=== PATIENT | male | born 1935 | race African-American/Black ===

== ENCOUNTER 2019-04-22 06:59 | Inpatient (IN) | payer OTHER ==
[2019-04-22] VITALS (10 sets, daily range): BP systolic 68–133; BP diastolic 29–59
[~2019-04-22] VITALS: Ht 170.2 cm; Wt 86.3 kg
[2019-04-22] MEDS ORDERED: ALBUTEROL (0.083%) 2.5MG/3ML NEB HHN STA (07:20)
[2019-04-22] MEDS ORDERED: IPRATROPIUM BROMIDE (0.02%) 0.5MG/2.5ML NEB HHN STA (07:20)
[2019-04-22] MEDS ORDERED: METHYLPREDNISOLONE SOD SUCC 125 MG/2 ML VIAL IV STA (07:20)
[2019-04-22] MEDS ORDERED: SODIUM CHLORIDE 0.9% 500 ML IV ONE (07:22)
[2019-04-22 07:36] LABS: HEMATOCRIT. 39.3 % (42.0-52.0); LYMPHOCYTES % 24.6 % (20.0-50.0); MEAN CORPUSCULAR HEMOGLOBIN 32.8 pg (28.0-32.0); MEAN CORPUSCULAR VOLUME 99.3 fL (80.0-94.0); MEAN PLATELET VOLUME 9.9 fl (7.4-10.4); MONOCYTES % 12.2 % (2.0-8.0); NEUTROPHILS % 61.2 % (40.0-76.0); PLATELET 145 x1000/uL (130-400); RED BLOOD CELL COUNT 3.96 mill/uL (4.7-6.1); RED CELL DISTRIBUTION WIDTH 18.2 % (11.6-14.6)
[2019-04-22 07:43] LABS: CHLORIDE 104 mEq/L (98-107)
[2019-04-22 07:49] LABS: PHOSPHORUS 3.5 mg/dL (2.5-4.9)
[2019-04-22] MEDS ORDERED: LEVOFLOXACIN 500MG PREMIX 100 ML IV ONE (08:15)
[2019-04-22] MEDS ORDERED: VANCOMYCIN 1 G PREMIX 200 ML IV SCH ×2 (08:15→11:30)
[2019-04-22] MEDS ORDERED: PIPERACILLIN/TAZOBACTAM 3.375 G in DEXT 5% WATER 100 ML IV SCH (08:45)
[2019-04-22] MEDS ORDERED: IPRATROPIUM/ALBUTEROL 0.5-3(2.5)MG/3ML NEB HHN PRN (08:45)
[2019-04-22] MEDS ORDERED: LIDOCAINE HCL 1% 20ML VIAL (Pyxis) INJ ONE (08:59)
[2019-04-22] MEDS ORDERED: SODIUM CHLORIDE 10% FOR INH 15ML VIAL NEB INH SCH (11:00)
[2019-04-22] MEDS ORDERED: IPRATROPIUM/ALBUTEROL 0.5-3(2.5)MG/3ML NEB HHN SCH (12:00)
[2019-04-22] MEDS ORDERED: CLONIDINE 0.1MG TABLET PO PRN (12:30)
[2019-04-22] MEDS ORDERED: NA PHOS,M-B/NA PHOS,DI-BA ENEMA 118ML PR PRN (12:30)
[2019-04-22] MEDS ORDERED: ONDANSETRON HCL 4MG/2ML INJ IV PRN (12:30)
[2019-04-22] MEDS ORDERED: MAGNESIUM/ALUMINUM HYDROXIDE/SIMETHICONE 30ML UDC PO PRN (12:30)
[2019-04-22] MEDS ORDERED: HYDROCODONE/APAP 7.5/325MG 1 TAB TABLET PO PRN (12:30)
[2019-04-22] MEDS ORDERED: ACETAMINOPHEN 650MG/20.3ML UDC GT PRN (12:30)
[2019-04-22] MEDS ORDERED: GUAIFENESIN 200MG/10ML SUGAR FREE UDC PO PRN (12:30)
[2019-04-22] MEDS ORDERED: ENOXAPARIN 40MG/0.4ML SYR SUBCUT SCH (12:30)
[2019-04-22] MEDS ORDERED: ACETAMINOPHEN 650MG SUPP PR PRN (12:30)
[2019-04-22] MEDS ORDERED: ACETAMINOPHEN 325MG TABLET PO PRN (12:30)
[2019-04-22] MEDS ORDERED: DIPHENHYDRAMINE 50MG/ML VIAL IV PRN (12:30)
[2019-04-22] MEDS ORDERED: IPRATROPIUM/ALBUTEROL 0.5-3(2.5)MG/3ML NEB INH PRN (12:30)
[2019-04-22] MEDS ORDERED: DOCUSATE SODIUM 100MG CAPSULE PO PRN (12:30)
[2019-04-22] MEDS ORDERED: AZITHROMYCIN 500 MG in DEXT 5% WATER 250 ML IV SCH (14:00)
[2019-04-22] MEDS: SODIUM CHLORIDE 0.9% INJ 3ML FLUSH IVF SCH ×2 (14:00→21:05)
[2019-04-22] MEDS: PIPERACILLIN/TAZOBACTAM 2.25 G in DEXTROSE 5% WATER 50 ML IV SCH ×2 (15:40→21:04)
[2019-04-22] MEDS: ENOXAPARIN 30MG/0.3ML SYR SUBCUT SCH (15:55)
[2019-04-22] MEDS: MIDODRINE HCL 5MG TABLET PO SCH ×2 (15:56→21:04)
[2019-04-22] MEDS ORDERED: VANCOMYCIN 1 G PREMIX 200 ML IV NR (16:00)
[2019-04-22] MEDS: BUDESONIDE 0.5MG/2ML NEB HHN SCH (20:44)
[2019-04-22] MEDS: IPRATROPIUM/ALBUTEROL 0.5-3(2.5)MG/3ML NEB INH SCH (20:45)
[2019-04-22] MEDS: GUAIFENESIN 600MG ER TABLET PO SCH (21:04)
[2019-04-23] VITALS (16 sets, daily range): BP systolic 76–126; BP diastolic 33–76
[2019-04-23] MEDS ORDERED: ALBUMIN HUMAN 25GM/100ML (25%) IV NR (02:00)
[2019-04-23] MEDS: IPRATROPIUM/ALBUTEROL 0.5-3(2.5)MG/3ML NEB INH SCH ×4 (03:20→20:23)
[2019-04-23] MEDS: SODIUM CHLORIDE 0.9% INJ 3ML FLUSH IVF SCH ×2 (06:48→22:00)
[2019-04-23] MEDS: PIPERACILLIN/TAZOBACTAM 2.25 G in DEXTROSE 5% WATER 50 ML IV SCH ×3 (06:48→21:05)
[2019-04-23 08:14] LABS: BASOPHILS % 0.3 % (0.0-2.0); EOSINOPHILS % 0.1 % (0.0-5.0); HEMATOCRIT. 34.3 % (42.0-52.0); HEMOGLOBIN. 11.3 g/dL (14.0-18.0); LYMPHOCYTES % 20.7 % (20.0-50.0); MEAN CORPUSCULAR HEMOGLOBIN 32.8 pg (28.0-32.0); MEAN CORPUSCULAR VOLUME 99.3 fL (80.0-94.0); MEAN PLATELET VOLUME 11.1 fl (7.4-10.4); MONOCYTES % 11.3 % (2.0-8.0); NEUTROPHILS % 67.6 % (40.0-76.0); PLATELET 127 x1000/uL (130-400); RED BLOOD CELL COUNT 3.45 mill/uL (4.7-6.1); RED CELL DISTRIBUTION WIDTH 18.2 % (11.6-14.6)
[2019-04-23 08:49] LABS: CHLORIDE 102 mEq/L (98-107)
[2019-04-23 09:04] LABS: PHOSPHORUS 4.5 mg/dL (2.5-4.9)
[2019-04-23 09:05] LABS: LDL CHOLESTEROL 38 mg/dL (5-100)
[2019-04-23 09:07] LABS: HDL CHOLESTEROL 74 mg/dL (40-59)
[2019-04-23] MEDS: BUDESONIDE 0.5MG/2ML NEB HHN SCH ×2 (09:12→20:23)
[2019-04-23] MEDS: GUAIFENESIN 600MG ER TABLET PO SCH ×2 (10:16→21:05)
[2019-04-23] MEDS: MIDODRINE HCL 5MG TABLET PO SCH ×2 (10:17→21:06)
[2019-04-23] MEDS ORDERED: CARB-32 MT (13:46)
[2019-04-23] MEDS ORDERED: SEVE0.8P PO (13:46)
[2019-04-23] MEDS ORDERED: ROSU20TA2 PO (13:46)
[2019-04-23] MEDS ORDERED: GLYC488L PO (13:46)
[2019-04-23] MEDS ORDERED: ALBU18HF2 IH (13:46)
[2019-04-23] MEDS ORDERED: TIOT18CA3 IH (13:46)
[2019-04-23] MEDS ORDERED: MIDO10TA PO (13:46)
[2019-04-23] MEDS ORDERED: KEPP500 PO (13:46)
[2019-04-23] MEDS ORDERED: NEPVIT MT (13:46)
[2019-04-23] MEDS ORDERED: CINA30 PO (13:46)
[2019-04-24] VITALS (15 sets, daily range): BP systolic 75–116; BP diastolic 40–72
[2019-04-24] MEDS: IPRATROPIUM/ALBUTEROL 0.5-3(2.5)MG/3ML NEB INH SCH ×3 (01:58→14:21)
[2019-04-24] MEDS: MIDODRINE HCL 5MG TABLET PO SCH ×3 (04:49→20:18)
[2019-04-24 05:20] LABS: BASOPHILS % 1.1 % (0.0-2.0); EOSINOPHILS % 1.3 % (0.0-5.0); HEMOGLOBIN. 12.3 g/dL (14.0-18.0); LYMPHOCYTES % 22.9 % (20.0-50.0); MEAN CORPUSCULAR HEMOGLOBIN 32.8 pg (28.0-32.0); MEAN CORPUSCULAR VOLUME 98.4 fL (80.0-94.0); MEAN PLATELET VOLUME 9.9 fl (7.4-10.4); MONOCYTES % 8.9 % (2.0-8.0); NEUTROPHILS % 65.8 % (40.0-76.0); PLATELET 143 x1000/uL (130-400); RED BLOOD CELL COUNT 3.76 mill/uL (4.7-6.1); RED CELL DISTRIBUTION WIDTH 18.3 % (11.6-14.6)
[2019-04-24 06:04] LABS: PHOSPHORUS 5.5 mg/dL (2.5-4.9)
[2019-04-24] MEDS: SODIUM CHLORIDE 0.9% INJ 3ML FLUSH IVF SCH ×2 (06:23→13:02)
[2019-04-24] MEDS ORDERED: LEVOFLOXACIN 500MG PREMIX 100 ML IV SCH (09:00)
[2019-04-24] MEDS: BUDESONIDE 0.5MG/2ML NEB HHN SCH (09:00)
[2019-04-24] MEDS: PIPERACILLIN/TAZOBACTAM 2.25 G in DEXTROSE 5% WATER 50 ML IV SCH ×2 (09:05→14:39)
[2019-04-24] MEDS: GUAIFENESIN 600MG ER TABLET PO SCH (09:05)
[2019-04-24] MEDS: ENOXAPARIN 30MG/0.3ML SYR SUBCUT SCH ×2 (13:01→14:21)
[2019-04-24] MEDS ORDERED: VANCOMYCIN 1 G PREMIX 200 ML IV SCH (15:00)
[2019-04-24 20:23] LABS: T4 FREE 0.93 ng/dL (0.76-1.46)
[2019-04-24 21:33] LABS: CREATINE KINASE MB FRACTION 2.3 ng/mL (0.5-3.6)
[2019-04-27 04:14] LABS: OVA & PARASITE EXAM Final report (.)
== END 2019-04-24 20:45 | disposition short-term general hospital (02) | DRG 189 ==
LOC: ER 06:59 → 5EST 08:12 → EDBEDREQ 08:26 → EDBEDREQSVC 08:26 → ENRESERV 08:34
PROVIDERS: ADMIT Family Medicine; ATTEND Family Medicine
PROC: 05HY33Z Insertion of Infusion Device into Upper Vein, Percutaneous Approach (ICD-10-PCS; principal; 2019-04-22)
PROC: 5A1D70Z Performance of Urinary Filtration, Intermittent, Less than 6 Hours Per Day (ICD-10-PCS; 2019-04-22)
PROC: B54MZZA Ultrasonography of Right Upper Extremity Veins, Guidance (ICD-10-PCS; 2019-04-22)
PROC: 5A1D70Z Performance of Urinary Filtration, Intermittent, Less than 6 Hours Per Day (ICD-10-PCS; 2019-04-24)
DX: J96.01 Acute respiratory failure with hypoxia (principal); N18.6 End stage renal disease; J18.1 Lobar pneumonia, unspecified organism; J44.1 Chronic obstructive pulmonary disease with (acute) exacerbation; E44.1 Mild protein-calorie malnutrition; I12.0 Hypertensive chronic kidney disease with stage 5 chronic kidney disease or end stage renal disease; J44.0 Chronic obstructive pulmonary disease with (acute) lower respiratory infection; J81.1 Chronic pulmonary edema; G20 Parkinson's disease; F02.80 Dementia in other diseases classified elsewhere, unspecified severity, without behavioral disturbance, psychotic disturbance, mood disturbance, and anxiety; M10.9 Gout, unspecified; I95.9 Hypotension, unspecified; D72.819 Decreased white blood cell count, unspecified; I95.1 Orthostatic hypotension; Z99.2 Dependence on renal dialysis; Z82.49 Family history of ischemic heart disease and other diseases of the circulatory system; Z85.46 Personal history of malignant neoplasm of prostate; Z87.891 Personal history of nicotine dependence; Z79.899 Other long term (current) drug therapy; Z98.2 Presence of cerebrospinal fluid drainage device; Z68.29 Body mass index [BMI] 29.0-29.9, adult
CPT/HCPCS: 36415; 71045; 76937; 80048; 80061; 80202; 82550; 82553; 83036; 83605; 83735; 83880; 84100; 84145; 84439; 84443; 84484; 85379; 87177; 87209; 93005; 93306; 94640; 94644; 97166; 99285; C1725; J0456; J1200; J1650; J1956; J2543; J2930; J3370; J3490; J7040; J7060; J7131; J7611; J7620; J7626; P9047